=== PATIENT | male | born 1990 | race Caucasian/White ===

== ENCOUNTER 2016-04-19 01:47 | Emergency (ER) | payer MEDICAID, OTHER ==
[~2016-04-19] VITALS: Ht 177.8 cm; Wt 154.2 kg
[2016-04-19 02:07] VITALS: BP 135/68
--- NOTE | 2016-04-19 03:16 | NUR ---
TO ER BED 4
--- NOTE | 2016-04-19 03:21 | NUR ---
25 Y/O HERE C/O R UPPER TOOTH ACHE X 2 WKS GETTING WORSE THE LAST FEW DAYS. DENIES ANY FEVER/ CHILLS, NAUSEA OR VOMITTING. NO S/S OF DISTRESS NOTED AT THIS TIME. ER MD AWARED OF IT.
[2016-04-19] MEDS ORDERED: ACETAMINOPHEN/CODEINE 300/30MG 1 TAB PO ONE (03:40)
[2016-04-19 03:57] VITALS: BP 141/74
--- NOTE | 2016-04-19 03:57 | NUR ---
Patient discharged with v/s stable. Written and verbal after care instructions given and explained. Patient alert, oriented and verbalized understanding of instructions. Ambulatory with steady gait. All questions addressed prior to discharge. ID band removed. Patient advised to follow up with PMD. Rx of TYLENOL #3 given. Patient educated on indication of medication including possible reaction and side effects. Opportunity to ask questions provided and answered.
== END 2016-04-19 03:57 | disposition home or self-care (01) ==
LOC: MED 01:47
DX: K08.89 Other specified disorders of teeth and supporting structures (principal); R03.0 Elevated blood-pressure reading, without diagnosis of hypertension

== ENCOUNTER 2016-04-22 20:20 | Emergency (ER) | payer MEDICAID, OTHER ==
[~2016-04-22] VITALS: Ht 177.8 cm; Wt 154.2 kg
[2016-04-22 20:30] VITALS: BP 141/76
--- NOTE | 2016-04-22 21:50 | NUR ---
TO ER BED 3
--- NOTE | 2016-04-22 21:56 | NUR ---
PT IS A 25Y/M BIB FAMILY C/O ABDOMINAL PAIN x 4 DAYS.
--- NOTE | 2016-04-23 00:15 | NUR ---
Patient being evaluated by DR. POWELL at bedside.
[2016-04-23 00:26] VITALS: BP 138/72
== END 2016-04-23 00:25 | disposition home or self-care (01) ==
LOC: MED 20:31
DX: R10.13 Epigastric pain (principal); K21.9 Gastro-esophageal reflux disease without esophagitis